=== PATIENT | male | born 1955 | race Caucasian/White ===

== ENCOUNTER 2024-12-10 06:24 | Day surgery (SDC) | payer OTHER, MEDICARE ==
[~2024-12-10 06:24] MED LIST: Ondansetron 4 MG/2 ML SDV IVPUSH PRN; Povidone-Iodine 5% Sterile Ophth Soln 30 ML Bottle EYELF ONE; Timolol Maleate 0.5% Ophth Soln 5 ML Bottle EYELF ONE
[2024-12-10] MEDS ORDERED: Sodium Chloride 0.9% 10 ML Syringe IV ONE (06:25)
[2024-12-10] MEDS ORDERED: Dexamethasone 4 MG/ML SDV IV ONE (06:25)
[2024-12-10] MEDS ORDERED: Midazolam 1 MG/ML 2 ML SDV IV ONE (06:25)
[2024-12-10] MEDS ORDERED: Dexamethasone/Tobramycin 0.1-0.3% Ophth Oint 3.5 GM Tube EYELF ONE (06:30)
[2024-12-10] MEDS ORDERED: VANCOmycin 6 MG in Sodium Chloride 0.9% 100 ML IV ONE (06:30)
[2024-12-10] MEDS ORDERED: Dexamethasone/Neomycin/Polymyxin B Ophth Oint 3.5 GM Tube EYELF ONE (06:30)
[2024-12-10] MEDS ORDERED: Apraclonidine 0.5% Ophth Soln 5 ML Bot EYELF SCH (06:30)
[2024-12-10] MEDS ORDERED: Diclofenac Sodium 0.1% Ophth Soln 5 ML Bottle EYELF SCH (06:30)
[2024-12-10] MEDS: Moxifloxacin 0.5% Ophth Soln 3 ML Bottle EYELF ONE (06:58)
[2024-12-10] MEDS: Povidone-Iodine 5% Sterile Ophth Soln 30 ML Bottle EYELF ONE ×2 (06:59→07:51)
[2024-12-10] MEDS: Phenylephrine 10% Ophth Soln 5 ML Bot EYELF PRN (07:01)
[2024-12-10] MEDS: Timolol Maleate 0.5% Ophth Soln 5 ML Bottle EYELF ONE (07:02)
[2024-12-10] MEDS: Cataract Ophth Solution EYELF ONE (07:03)
[2024-12-10] MEDS: Apraclonidine 0.5% Ophth Soln 5 ML Bot EYELF ONE ×2 (07:52→08:02)
[2024-12-10] MEDS: Diclofenac Sodium 0.1% Ophth Soln 5 ML Bottle EYELF ONE (07:53)
[2024-12-10] MEDS: Dexamethasone/Neomycin/Polymyxin B Ophth Oint 3.5 GM Tube EYELF ONE ×2 (07:54→08:02)
[2024-12-10] MEDS ORDERED: Dexamethasone 4 MG/ML SDV ONE (10:52)
== END 2024-12-10 09:08 | disposition home or self-care (01) ==
LOC: DL.SDS 06:24
PROVIDERS: ATTEND Ophthalmology
DX: H25.812 Combined forms of age-related cataract, left eye (principal); Z79.899 Other long term (current) drug therapy
CPT/HCPCS: 66984; A9270; J1100; J2003; J2250; J3370; J3490; V2632

== ENCOUNTER 2024-12-24 06:27 | Day surgery (SDC) | payer MEDICARE, OTHER ==
[2024-12-24] MEDS ORDERED: Sodium Chloride 0.9% 10 ML Syringe IV ONE (06:28)
[2024-12-24] MEDS ORDERED: Dexamethasone 4 MG/ML SDV IV ONE (06:28)
[2024-12-24] MEDS ORDERED: Midazolam 1 MG/ML 2 ML SDV IV ONE (06:28)
[2024-12-24] MEDS ORDERED: Ondansetron 4 MG/2 ML SDV IVPUSH PRN (06:30)
[2024-12-24] MEDS ORDERED: Sodium Chloride 0.9% 10 ML Syringe FLUSH PRN (06:30)
[2024-12-24] MEDS: Moxifloxacin 0.5% Ophth Soln 3 ML Bottle EYERT ONE (07:25)
[2024-12-24] MEDS: Povidone-Iodine 5% Sterile Ophth Soln 30 ML Bottle EYERT ONE ×2 (07:26→09:15)
[2024-12-24] MEDS: Phenylephrine 10% Ophth Soln 5 ML Bot EYERT ONE (07:26)
[2024-12-24] MEDS: Timolol Maleate 0.5% Ophth Soln 5 ML Bottle EYERT ONE (07:27)
[2024-12-24] MEDS: Cataract Ophth Solution EYERT ONE (07:28)
[2024-12-24] MEDS: Dexamethasone/Neomycin/Polymyxin B Ophth Oint 3.5 GM Tube EYERT ONE (09:30)
[2024-12-24] MEDS: Diclofenac Sodium 0.1% Ophth Soln 5 ML Bottle EYERT ONE (09:30)
[2024-12-24] MEDS: Apraclonidine 0.5% Ophth Soln 5 ML Bot EYERT ONE (09:30)
== END 2024-12-24 10:00 | disposition home or self-care (01) ==
LOC: DL.SDS 06:27
PROVIDERS: ATTEND Ophthalmology
DX: H25.811 Combined forms of age-related cataract, right eye (principal); Z91.038 Other insect allergy status
CPT/HCPCS: 00142; 66984; 99100; A9270; J1100; J2003; J2250; J3373; V2632; J3490